=== PATIENT | female | born 1995 | race Two or more races ===

== ENCOUNTER → 2020-09-29 | Outpatient (CLI) | payer MEDICAID ==
--- NOTE | 2020-09-29 17:42 | RAD ---
Study: US OB >14 WEEKS Clinical Indication: Large for dates. Comparison: None. Technique: Multiple grayscale images, color Doppler, and M-mode images of the uterus are obtained. Findings: Single intrauterine gestation in breech presentation. The placenta is posterior in location without e vidence of placenta previa. The amount of amniotic fluid appears appropriate. Amniotic fluid index i s 9.8 cm. Cervical length is 5.1 cm. Biometrical data: BPD = 5.4 cm for 22 weeks 3 days. HC = 20.8 cm for 23 weeks 0 days. AC = 18.3 cm for 23 weeks 1 days. FL = 3.8 cm for 22 weeks 2 days. CI ratio = 73.6. (Normal 74-83) HC/AC ratio = 1.14. FL/HC ratio = 18.3. FL/AC ratio = 20.9. Overall, the estimated sonographic gestational age is 22 weeks 5 days for an estimated date of delive ry of 01/28/2021. The clinical estimated date of delivery is 01/26/2021. Estimated weight is 5 29 +/- 78 grams, 36th percentile. A 4 chamber heart is identified with positive cardiac activity. The estimated heart rate is 125 beats per minute. Bilateral upper and lower extremities are identified. There is a three-vessel cord with cord insertion visualized. stomach and urinary bladder are identified. Both kidneys are seen. The spine and brain are unremarkable. No gross anatomic abnormalities are identified. Impression: 1. Single live intrauterine gestation with estimated sonographic gestational age of 22 weeks 5 days corresponding to an estimated delivery date of 01/28/2021. Clinically estimated delivery date of 01/09. weight estimate of 529 +/- 78 grams which is at the 36th percentile. 2. Borderline low cephalic index suggests possible dolichocephaly. Electronically signed by: Agusto Andrews MD (09/29/2020 5:39 PM) [id number]
== END ==
LOC: US 13:11
PROVIDERS: ATTEND Obstetrics & Gynecology
DX: O26.842 Uterine size-date discrepancy, second trimester (principal); Z3A.22 22 weeks gestation of pregnancy
CPT/HCPCS: 76805